=== PATIENT | male | born 1985 | race Caucasian/White ===

== ENCOUNTER 2018-07-13 12:11 | Inpatient (IN) | payer OTHER ==
[~2018-07-13] VITALS: Ht 180.3 cm; Wt 65.7 kg
[2018-07-13] MEDS ORDERED: PRAV20TA2 PO (12:37)
[2018-07-13 13:04] LABS: HCT (SEDRATE) 45.2 % (39.2-51.8)
[2018-07-13 13:14] LABS: ANION GAP 5 mmol/L (5-15); CALCIUM 9.1 mg/dL (8.5-10.1); CHLORIDE 110 mmol/L (98-107); CREATININE 1.01 mg/dL (0.7-1.3)
[2018-07-13 13:17] LABS: BASOPHILS # (AUTO) 0.01 x10^3/uL (0-0.1); BASOPHILS % (AUTO) 0 % (0-1); EOSINOPHILS # (AUTO) 0.06 x10^3/uL (0-0.4); EOSINOPHILS % (AUTO) 2 % (1-7); LYMPHOCYTES # (AUTO) 1.25 x10^3/uL (1-3.4); LYMPHOCYTES % (AUTO) 40 % (22-44); MD NO; MEAN CORPUSCULAR HEMOGLOBIN 27.7 pg (27.5-34.5); MEAN CORPUSCULAR HGB CONC 33.6 g/dL (33.2-36.2); MEAN CORPUSCULAR VOLUME 82.3 fL (81-97); MEAN PLATELET VOLUME 8.5 fL (7.4-10.4); MONOCYTES # (AUTO) 0.32 x10^3/uL (0.2-0.8); MONOCYTES % (AUTO) 10 % (2-9); NEUTROPHILS # (AUTO) 1.51 x10^3/uL (1.8-6.8); NEUTROPHILS % (AUTO) 48 % (42-75); PLATELET COUNT 247 x10^3/uL (130-400); RED BLOOD COUNT 5.48 x10^6/uL (4.38-5.82); RED CELL DISTRIBUTION WIDTH 13.6 % (9.4-14.8)
[2018-07-13 13:27] LABS: PROTHROMBIN TIME 10.5 Seconds (9.6-11.5)
[2018-07-13 13:33] LABS: MICROSCOPIC NOT IND
[2018-07-13 13:51] LABS: CULTURE INDICATED? NO
[2018-07-16] MEDS ORDERED: BUPIVACAINE/PF-EPI 0.5% 1:200K ONE (07:29)
[2018-07-16] MEDS ORDERED: TRANEXAMIC ACID 100 MG/ML, 10ML ONE ×2 (07:30)
[2018-07-16] MEDS ORDERED: BACITRACIN 50,000 UNIT ONE (07:30)
[2018-07-16] MEDS ORDERED: VANCOMYCIN 1,000 MG ONE (07:30)
[2018-07-16] MEDS ORDERED: THROMBIN 5,000 UNIT VIAL TP ONE (07:30)
[2018-07-16] MEDS ORDERED: VANCOMYCIN PMX 1GM/200ML 200 ML IV ONE (07:30)
[2018-07-16] MEDS ORDERED: LACTATED RINGERS 1,000 ML IV SCH (07:35)
[2018-07-16] MEDS ORDERED: MIDAZOLAM 1 MG/ML, 2ML ONE (08:29)
[2018-07-16] MEDS ORDERED: FENTANYL PF 250 MCG/5ML ONE (08:29)
[2018-07-16] MEDS ORDERED: SUFentanil 50 MCG/ML, 2ML ONE ×2 (08:49→12:51)
[2018-07-16] MEDS ORDERED: PROPOFOL 10 MG/ML, 20ML ONE (09:04)
[2018-07-16] MEDS ORDERED: CEFAZOLIN 1,000 MG ONE (09:04)
[2018-07-16] MEDS ORDERED: ONDANSETRON 2MG/ML, 2ML ONE (09:04)
[2018-07-16] MEDS ORDERED: DEXAMETHASONE 4 MG/ML, 1ML ONE (09:04)
[2018-07-16] MEDS ORDERED: SUCCINYLCHOLINE 20 MG/ML, 10ML ONE (09:04)
[2018-07-16] MEDS ORDERED: LABETALOL 5MG/ML, 20ML IV PRN ×2 (10:00→15:30)
[2018-07-16] MEDS ORDERED: KETOROLAC 30 MG/1 ML IV PRN (10:00)
[2018-07-16] MEDS ORDERED: hydrALAzine 20 MG/ML, 1ML IV PRN (10:00)
[2018-07-16] MEDS ORDERED: ACETAMINOPHEN 325 MG TABLET PO PRN (10:00)
[2018-07-16] MEDS ORDERED: PROMETHAZINE 25 MG/ML, 1ML IV PRN (10:00)
[2018-07-16] MEDS ORDERED: OXYcodone 5 MG/5 ML ORAL.SOL UDC PO PRN (10:00)
[2018-07-16] MEDS ORDERED: MEPERIDINE/PF 25MG/0.5ML IVPush PRN (10:00)
[2018-07-16] MEDS ORDERED: DIAZEPAM 5 MG/ML, 2ML IVPush PRN (10:00)
[2018-07-16] MEDS ORDERED: HYDROmorphone 2 MG/ML, 1ML IVPush PRN (10:00)
[2018-07-16] MEDS ORDERED: ALBUTEROL SULFATE 2.5 MG/3 ML NPPB PRN (10:00)
[2018-07-16] MEDS ORDERED: FENTANYL PF 100 MCG/2ML IV PRN (10:00)
[2018-07-16] MEDS ORDERED: FENTANYL PF 100 MCG/2ML ONE (13:38)
[2018-07-16] MEDS ORDERED: OXYcodone 5 MG/5 ML ORAL.SOL UDC ONE (13:38)
[2018-07-16] MEDS ORDERED: BISACODYL 10 MG SUPP PR PRN (15:30)
[2018-07-16] MEDS ORDERED: DIPHENHYDRAMINE 50 MG/ML, 1ML IVPush PRN (15:30)
[2018-07-16] MEDS ORDERED: PROMETHAZINE 25 MG/ML, 1ML IM PRN (15:30)
[2018-07-16] MEDS ORDERED: DIAZEPAM 5 MG/ML, 2ML IV PRN (15:30)
[2018-07-16] MEDS ORDERED: LORazepam 1MG TABLET PO PRN (15:30)
[2018-07-16] MEDS ORDERED: SODIUM CHLORIDE 0.9% 1,000ML IV PRN (15:30)
[2018-07-16] MEDS ORDERED: KETOROLAC 30 MG/1 ML IV ONE (15:30)
[2018-07-16] MEDS ORDERED: DIPHENHYDRAMINE 50 MG/ML, 1ML IM PRN (15:30)
[2018-07-16] MEDS ORDERED: DIPHENHYDRAMINE 50 MG CAPSULE PO PRN (15:30)
[2018-07-16] MEDS ORDERED: ONDANSETRON 2MG/ML, 2ML IV PRN (15:30)
[2018-07-16] MEDS ORDERED: morphine SULFATE 10 MG/ML, 1ML IV PRN (15:30)
[2018-07-16] MEDS ORDERED: ACETAMINOPHEN 650 MG SUPP PR PRN (16:00)
[2018-07-16] MEDS ORDERED: ACETAMINOPHEN 500 MG TABLET PO PRN (16:00)
[2018-07-16] MEDS: CEFAZOLIN PMX 1GM/50ML 50 ML IVPB SCH (17:00)
[2018-07-16] MEDS: D5%-0.9% NACL+KCL 20MEQ 1,000 ML IV SCH (17:00)
[2018-07-16 20:00] VITALS: BP 98/50
[2018-07-16] MEDS ORDERED: ZOLPIDEM 5MG TABLET PO PRN (21:00)
[2018-07-16] MEDS: PRAVASTATIN 20 MG TABLET PO SCH (21:20)
[2018-07-16] MEDS ORDERED: KETOROLAC 30 MG/1 ML IM PRN (23:30)
[2018-07-16 23:35] VITALS: BP 104/78
[2018-07-17] MEDS: CEFAZOLIN PMX 1GM/50ML 50 ML IVPB SCH (01:02)
[2018-07-17] MEDS: D5%-0.9% NACL+KCL 20MEQ 1,000 ML IV SCH ×3 (03:00→23:00)
[2018-07-17 03:56] VITALS: BP 96/56
[2018-07-17 04:11] LABS: BASOPHILS # (AUTO) 0.01 x10^3/uL (0-0.1); BASOPHILS % (AUTO) 0 % (0-1); EOSINOPHILS % (AUTO) 0 % (1-7); LYMPHOCYTES # (AUTO) 0.78 x10^3/uL (1-3.4); LYMPHOCYTES % (AUTO) 12 % (22-44); MD NO; MEAN CORPUSCULAR HEMOGLOBIN 27.8 pg (27.5-34.5); MEAN CORPUSCULAR VOLUME 84.1 fL (81-97); MEAN PLATELET VOLUME 8.6 fL (7.4-10.4); MONOCYTES # (AUTO) 0.66 x10^3/uL (0.2-0.8); MONOCYTES % (AUTO) 10 % (2-9); NEUTROPHILS # (AUTO) 5.17 x10^3/uL (1.8-6.8); NEUTROPHILS % (AUTO) 78 % (42-75); PLATELET COUNT 204 x10^3/uL (130-400); RED BLOOD COUNT 4.48 x10^6/uL (4.38-5.82); RED CELL DISTRIBUTION WIDTH 13.8 % (9.4-14.8)
[2018-07-17 07:10] VITALS: BP 87/51
[2018-07-17 08:21] VITALS: BP 107/64
[2018-07-17] MEDS: SENNA/DOCUSATE TABLET PO SCH (08:22)
[2018-07-17] MEDS: OXYcodone IR 5MG TABLET PO PRN ×4 (08:22→21:32)
[2018-07-17] MEDS: DIAZEPAM 5 MG TABLET PO PRN ×2 (12:14→21:32)
[2018-07-17] MEDS: MAGNESIUM HYDROXIDE 8%, 30ML UDC PO PRN (12:15)
[2018-07-17 12:34] VITALS: BP 89/56
[2018-07-17 12:39] VITALS: BP 108/64
[2018-07-17] MEDS: KETOROLAC 30 MG/1 ML IV PRN (15:57)
[2018-07-17] MEDS: DEXAMETHASONE 4 MG/ML, 1ML IV PRN ×2 (15:59→21:32)
[2018-07-17] MEDS: PRAVASTATIN 20 MG TABLET PO SCH (21:32)
[2018-07-18] MEDS: KETOROLAC 30 MG/1 ML IV PRN (01:22)
[2018-07-18] MEDS: OXYcodone IR 5MG TABLET PO PRN ×2 (01:22→07:35)
[2018-07-18 01:31] VITALS: BP 114/74
[2018-07-18 05:45] LABS: BASOPHILS % (AUTO) 0 % (0-1); EOSINOPHILS % (AUTO) 0 % (1-7); LYMPHOCYTES # (AUTO) 0.53 x10^3/uL (1-3.4); LYMPHOCYTES % (AUTO) 7 % (22-44); MD NO; MEAN CORPUSCULAR HEMOGLOBIN 27.6 pg (27.5-34.5); MEAN CORPUSCULAR HGB CONC 33.2 g/dL (33.2-36.2); MEAN CORPUSCULAR VOLUME 83.3 fL (81-97); MEAN PLATELET VOLUME 8.6 fL (7.4-10.4); MONOCYTES # (AUTO) 0.66 x10^3/uL (0.2-0.8); MONOCYTES % (AUTO) 9 % (2-9); NEUTROPHILS # (AUTO) 6.44 x10^3/uL (1.8-6.8); NEUTROPHILS % (AUTO) 84 % (42-75); PLATELET COUNT 189 x10^3/uL (130-400); RED BLOOD COUNT 4.66 x10^6/uL (4.38-5.82); RED CELL DISTRIBUTION WIDTH 13.6 % (9.4-14.8)
[2018-07-18] MEDS: D5%-0.9% NACL+KCL 20MEQ 1,000 ML IV SCH (07:14)
[2018-07-18] MEDS: DIAZEPAM 5 MG TABLET PO PRN (07:35)
[2018-07-18] MEDS: SENNA/DOCUSATE TABLET PO SCH (07:35)
[2018-07-18] MEDS: MAGNESIUM HYDROXIDE 8%, 30ML UDC PO PRN (07:38)
[2018-07-18 07:40] VITALS: BP 102/64
[2018-07-18 10:54] VITALS: BP 119/80
[2018-07-18] MEDS ORDERED: OXYC10TA6 PO (11:23)
[2018-07-18] MEDS ORDERED: DIAZ5TAB4 PO (11:24)
[2018-07-18] MEDS ORDERED: CEPH-368 PO (11:24)
[2018-07-26] MEDS ORDERED: ACET325T14 PO (10:25)
[2018-07-26] MEDS ORDERED: BISA10SU54 PR (10:25)
[2018-07-26] MEDS ORDERED: SENN-177 PO (10:25)
== END 2018-07-18 11:40 | disposition home or self-care (01) | DRG 455 ==
LOC: OBSVTOIN 07-16 07:11 → INTOOBSV 07-16 07:11 → ORIP 07-16 07:11 → 4NOR 07-16 14:46 → DCLOUNGE 07-18 11:31
PROVIDERS: ADMIT Orthopaedic Surgery Orthopaedic Surgery of the Spine; ATTEND Orthopaedic Surgery Orthopaedic Surgery of the Spine
PROC: 0SG30AJ Fusion of Lumbosacral Joint with Interbody Fusion Device, Posterior Approach, Anterior Column, Open Approach (ICD-10-PCS; 2018-07-16)
PROC: 01NB0ZZ Release Lumbar Nerve, Open Approach (ICD-10-PCS; 2018-07-16)
PROC: 01NR0ZZ Release Sacral Nerve, Open Approach (ICD-10-PCS; 2018-07-16)
PROC: 0SB40ZZ Excision of Lumbosacral Disc, Open Approach (ICD-10-PCS; 2018-07-16)
PROC: 07DR3ZZ Extraction of Iliac Bone Marrow, Percutaneous Approach (ICD-10-PCS; 2018-07-16)
PROC: 4A11X4G Monitoring of Peripheral Nervous Electrical Activity, Intraoperative, External Approach (ICD-10-PCS; 2018-07-16)
PROC: 0SG0071 Fusion of Lumbar Vertebral Joint with Autologous Tissue Substitute, Posterior Approach, Posterior Column, Open Approach (ICD-10-PCS; 2018-07-16)
PROC: 0SG3071 Fusion of Lumbosacral Joint with Autologous Tissue Substitute, Posterior Approach, Posterior Column, Open Approach (ICD-10-PCS; 2018-07-16)
PROC: 0SG00AJ Fusion of Lumbar Vertebral Joint with Interbody Fusion Device, Posterior Approach, Anterior Column, Open Approach (ICD-10-PCS; principal; 2018-07-16 09:00)
DX: M48.07 Spinal stenosis, lumbosacral region (principal); M51.17 Intervertebral disc disorders with radiculopathy, lumbosacral region
CPT/HCPCS: 36415; 71046; 72100; 80048; 81003; 85025; 85610; 85651; 85730; 86850; 86900; 93005; C1713; G0378; J0690; J1100; J1885; J2250; J2270; J2405; J2704; J3010; J3370; C1760; C1762; C1763; C9362; J0330; J3480; J7120